=== PATIENT | male | born 1995 | race American Indian/Alaskan Native ===

== ENCOUNTER 2020-10-13 10:58 | Emergency (ER) | payer SELFPAY ==
[2020-10-13 14:33] VITALS: BP 102/73
== END 2020-10-13 12:00 | disposition left against medical advice (07) ==
LOC: ED 10:58
DX: M25.561 Pain in right knee (principal); Z53.21 Procedure and treatment not carried out due to patient leaving prior to being seen by health care provider

== ENCOUNTER 2020-12-17 20:06 | Emergency (ER) | payer SELFPAY | END 2020-12-17 21:37 | disposition left against medical advice (07) | LOC: ED 20:06 | DX: R21 Rash and other nonspecific skin eruption (principal); Z53.21 Procedure and treatment not carried out due to patient leaving prior to being seen by health care provider ==